=== PATIENT | male | born 1940 | race Caucasian/White ===

== ENCOUNTER 2017-03-30 01:15 | Emergency (ER) | payer OTHER ==
[~2017-03-30] VITALS: Ht 182.9 cm; Wt 106.7 kg
[2017-03-30 01:19] VITALS: TEMP 36.9; Ht 182.9 cm; Wt 106.7 kg
[2017-03-30] MEDS ORDERED: INSULIN GLARGINE SOLOSTAR 100 UNITS/ML 3 ML PEN SC STA (01:32)
--- NOTE | 2017-03-30 01:36 | EMERGENCY ROOM VISIT NOTE ---
History Report prepared by Casey: Eliu Ellington Under the Supervision of: Dr. Charisse Yost D.O. First contact with patient: 01:23 Chief Complaint: MEDICATION REFILL REQUEST Stated Complaint: NEEDS INSULIN History of Present Illness The patient is a 76 year old male who presents to the Emergency Room with complaints of a sudden missed insulin dose that occurred this evening. He states that he has been camping away from home when he realized he forgot his insulin at home on the kitchen counter. The patient states that he was able to take his dose this morning, but was not able to take a dose this evening. The patient states that he was able to check his blood sugar this morning, which showed a level of 112, but was not able to check his levels this evening. He reports that he had to drive [address] [place] to the ED. The patient states that he will be returning home tomorrow evening. He reports that he typically takes 90 units of Ray twice a day, including once in the morning and once in the evening. The patient reports that he needs to have enough insulin to last him until tomorrow. Source of History: patient Onset: this evening Position: other (global) Quality: other (missed dose) Timing: other (sudden) Modifying Factors (Relieving): other (insulin) Review of Systems See HPI for pertinent positives & negatives. A total of 10 systems reviewed and were otherwise negative. Past Medical & Surgical Medical Problems: (1) Diabetes Family History Patient reports no known family medical history. Social History Smoking Status: Never Smoker Marital Status: Housing Status: lives with significant other Occupation Status: retired Current/Historical Medications Scheduled Aspirin (Aspirin Ec), 162 MG PO DAILY Insulin Glargine (Lantus Solostar), 180 SC qam/pm Lisinopril (Zestril), 20 MG PO DAILY Multivitamin (Multivitamin), 1 TAB PO DAILY Simvastatin (Zocor), 40 MG PO QPM Allergies Coded Allergies: No Known Allergies (Unverified , 03/30/17) Physical Exam Vital Signs Date Time Temp Pulse Resp B/P (MAP) Pulse Ox O2 Delivery O2 Flow Rate FiO2 03/30/17 01:50 87 16 123/68 97 Room Air 03/30/17 01:19 36.9 92 20 162/82 95 Room Air Physical Exam GENERAL: alert, well appearing, well nourished, no distress, non-toxic LUNGS: Clear to auscultation. Normal chest wall mechanics HEART: no murmurs, S1 normal and S2 normal ABDOMEN: abdomen soft, non-tender, normo-active bowel sounds, no masses, no rebound or guarding. SKIN: no rashes and no bruising NEURO EXAM: Normal sensorium, cranial nerves II-XII grossly intact, normal speech, no gross weakness of arms, no gross weakness of legs. Gross sensation intact. Medical Decision & Procedures Laboratory Results Test 03/30/17 01:25 Bedside Glucose 193 mg/dl (70-99) Laboratory results per my review. Medications Administered Medications (Trade) Dose Ordered Sig/Rudolph Route Start Time Stop Time Status Last Admin Dose Admin Insulin Glargine (Lantus Solostar Pen) 90 units NOW STAT SC 03/30/17 01:32 03/30/17 01:33 DC 03/30/17 01:49 90 UNITS ED Course 0125: The patient was evaluated in room A02. A complete history and physical exam was performed. 0132: Insulin Glargine 90 units SC. 0135: Upon reevaluation, the patient is feeling better. I discussed the findings and the treatment plan with the patient. He verbalizes agreement and understanding. The patient was discharged home. Medical Decision The differential diagnosis includes: insulin refill. Patient well-appearing here without physical complaint, concerned due to not have enough insulin over the weekend and potential, but patient's. Patient given one dose here, did have an extra Lantus pen with him but did not have the attachment needles in her to be able to inject himself. These were given to the patient at bedside. Discussed checking her sugar, symptoms to watch and return for, he verbalized understanding was agreeable with plan. Medication Reconcilliation Current Medication List: was personally reviewed by me Blood Pressure Screening Patient's blood pressure: Elevated blood pressure Blood pressure disposition: Elevated BP felt to be situational Impression Primary Impression: Diabetes Additional Impression: Medication refill Scribe Attestation The scribe's documentation has been prepared under my direction and personally reviewed by me in its entirety. I confirm that the note above accurately reflects all work, treatment, procedures, and medical decision making performed by me. Departure Information Dispostion Home / Self-Care Referrals No Doctor, Assigned (PCP) Forms HOME CARE DOCUMENTATION FORM, IMPORTANT VISIT INFORMATION, WORK / SCHOOL INSTRUCTIONS Patient Instructions [facility] Additional Instructions Please take your medications as prescribed and adhere to a diabetic diet. If you have any very high or very low blood sugar readings, develop fevers, cough, vomiting, diarrhea, dizziness, chest pain, trouble breathing, or you have any other new or concerning symptoms, please return to the er immediately. 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
[2017-03-30] MEDS ORDERED: INSDGIPEN SC (01:38)
[2017-03-30] MEDS ORDERED: ASPI81TA28 PO (01:38)
[2017-03-30] MEDS ORDERED: LISI-725 PO (01:39)
[2017-03-30] MEDS ORDERED: SIMV40TA2 PO (01:39)
[2017-03-30] MEDS ORDERED: MULT-506 PO (01:40)
[2017-03-30 01:50] VITALS: BP 123/68; PULSE 87; O2SAT 97
== END 2017-03-30 02:00 | disposition home or self-care (01) ==
LOC: C.EDB 01:16 → C.EDA 02:00
DX: E11.8 Type 2 diabetes mellitus with unspecified complications (principal); Z79.4 Long term (current) use of insulin; Z76.0 Encounter for issue of repeat prescription; Z79.82 Long term (current) use of aspirin